=== PATIENT | male | born 1960 | race Caucasian/White ===

== ENCOUNTER 2018-01-17 12:08 | Emergency (ER) | payer OTHER ==
[~2018-01-17] VITALS: Ht 182.9 cm; Wt 90.7 kg
[~2018-01-17 12:08] MED LIST: NOHOMEMEDICATIONS
[2018-01-17] MEDS ORDERED: AMLODIPINE BESY10 MG PO (12:21)
[2018-01-17] MEDS ORDERED: ASPIR 8181 MG PO (12:21)
[2018-01-17] MEDS ORDERED: COREG25 MG PO (12:21)
[2018-01-17] MEDS ORDERED: SPIRONOLACTONE25 MG PO (12:21)
[2018-01-17] MEDS ORDERED: VITAMIN D3400 UNIT PO (12:22)
[2018-01-17] MEDS ORDERED: COMPLETE MULTI1 EAC2 PO (12:22)
[2018-01-17] MEDS ORDERED: PACERONE 200 M200 M1 PO (12:22)
[2018-01-17 12:40] LABS: ABSOLUTE BASOPHILS 0.1 thou/uL (0.0-0.2); ABSOLUTE EOSINOPHILS 0.2 thou/uL (0.0-0.7); ABSOLUTE LYMPHOCYTES 1.6 thou/uL (0.8-5.3); ABSOLUTE MONOCYTES 1.9 thou/uL (0.0-1.2); ABSOLUTE NEUTROPHILS 6.5 thou/uL (1.6-8.1); BASOPHILS 0.6 %; EOSINOPHILS 1.8 %; HEMATOCRIT 37.9 % (42.0-52.0); HEMOGLOBIN 12.7 gm/dL (14.0-18.0); LYMPHOCYTES 15.8 %; MCH 28.9 pg (26.0-34.0); MCHC 33.5 g/dL (28.0-37.0); MCV 86.3 fL (80.0-100.0); MONOCYTES 18.4 %; MPV 7.7 fl. (7.2-11.1); NUCLEATED RBCS 0 /100WBC; PLATELET COUNT* 152 thou/uL (150-400); POLYS 63.4 %; RBC 4.39 mil/uL (4.50-6.00); RDW-CV 15.4 % (10.5-14.5); WBC 10.2 thou/uL (4.0-11.0)
[2018-01-17 12:48] LABS: INR 1.1; PROTIME 11.1 Seconds (9.20-11.50)
[2018-01-17 12:50] LABS: ANION GAP 7 mmol/L (7-16); BUN 25 mg/dL (7-18); CALCIUM 9.5 mg/dL (8.5-10.1); CHLORIDE 102 mmol/L (98-107); CO2 28 mmol/L (21-32); GLUCOSE 100 mg/dL (70-99); POTASSIUM 4.7 mmol/L (3.5-5.1); SODIUM 137 mmol/L (136-145)
[2018-01-17 12:59] LABS: ALBUMIN 3.6 g/dL (3.4-5.0); ALKALINE PHOSPHATASE 94 U/L (46-116); LIPASE 266 U/L (73-393); NT-PRO BRAIN NAT PEPTIDE 761 pg/mL (<300); SGOT 12 U/L (15-37); SGPT 19 U/L (30-65); TOTAL BILIRUBIN 0.6 mg/dL (<0.1-1.0); TOTAL PROTEIN 7.8 g/dL (6.4-8.2); TROPONIN-I LEVEL <0.06 ng/mL (<0.06)
[2018-01-17 13:38] LABS: URINE BILIRUBIN NEGATIVE (Negative); URINE BLOOD NEGATIVE (Negative); URINE CLARITY CLEAR; URINE COLOR YELLOW; URINE GLUCOSE-RANDOM NEGATIVE (Negative); URINE KETONES NEGATIVE (Negative); URINE LEUKOCYTES-REFLEX NEGATIVE (Negative); URINE NITRITE-REFLEX NEGATIVE (Negative); URINE PROTEIN TRACE (Negative); URINE SPECIFIC GRAVITY 1.025 (1.005-1.030); URINE UROBILINOGEN 0.2 E.U./dl (0.2-1.0)
[2018-01-17 14:18] VITALS: BP 142/69
--- NOTE | 2018-01-18 09:33 | EKG ---
[place] [address] ELECTROCARDIOGRAM REPORT Name: GARCIATRACEY Room: [facility]#: [id number] Admission: 01/17/18 Attend Phys: Discharge: 01/17/18 Date of : 58 Report #: [id number] THIS REPORT FOR: //name// [facility] ED Test Date: 2018-01-17 Test Time: 12:13:55 Pat Name: TRACEY ZELAYA Department: Room: Gender: M Manager Action: Mariangel SIU : 1960 Requested By: Coleman Tom Order Number: [id number] MD: Raúl Joshi Measurements Intervals [place] Rate: 60 P: 32 NV: 214 QRS: -17 QRSD: 101 T: 20 QT: 421 QTc: 421 Interpretive Statements Sinus rhythm Prolonged NV interval Left ventricular hypertrophy Inferior infarct, old Anterior infarct, old Compared to ECG 09/11/2009 09:51:03 First degree AV block now present Left ventricular hypertrophy now present Myocardial infarct finding now present Electronically Signed On 01-18-2018 9:32:55 CDT by Raúl Joshi [email or web address] <ELECTRONICALLY SIGNED> By: Raúl Joshi MD, [facility] 01/18/18 0932 1213 1213 Raúl Joshi MD, [facility] /EPI
== END 2018-01-17 14:19 | disposition home or self-care (01) ==
LOC: M.ERS 12:08
PROVIDERS: Emergency Medicine
DX: E86.0 Dehydration (principal); R42 Dizziness and giddiness; Z90.89 Acquired absence of other organs; Z86.73 Personal history of transient ischemic attack (TIA), and cerebral infarction without residual deficits